=== PATIENT | male | born 1970 | race African-American/Black ===

== ENCOUNTER 2016-11-20 18:59 | Emergency (ER) | payer OTHER, BC ==
[2016-11-20 19:07] VITALS: BP 113/65
--- NOTE | 2016-11-20 19:54 | ER Document Report ---
ED Medical Screen (RME) - General Chief Complaint: Groin Pain Stated Complaint: ABDOMINAL PAIN Time Seen by Provider: 11/20/16 19:43 Mode of Arrival: Ambulatory Information source: Patient Notes: The 46-year-old man with a history of BPH who presents to the emergency room with right groin pain and blood in the urine. Patient states that he had 3 days of chills and "feeling sick". He states that he was seen in the urgent care and diagnosed with a UTI and started on an antibiotic yesterday. He states today he started to have a right pain and then right groin pain and had gross hematuria. TRAVEL OUTSIDE OF THE [place] IN LAST 30 DAYS: No - Related Data Allergies/Adverse Reactions: aspirin [Aspirin] Allergy (Verified 11/20/16 19:07) swelling Past Medical History Renal/ Medical History: Denies: Hx Peritoneal Dialysis - Immunizations Immunizations up to date: Yes Hx Diphtheria, Pertussis, Tetanus Vaccination: Yes Physical Exam - Vital signs Vitals: Temp Pulse Resp BP Pulse Ox 99.5 F 87 16 113/65 97 11/20/16 19:07 11/20/16 19:07 11/20/16 19:07 11/20/16 19:07 11/20/16 19:07 Course - Vital Signs Vital signs: Temp Pulse Resp BP Pulse Ox 99.5 F 87 16 113/65 97 11/20/16 19:07 11/20/16 19:07 11/20/16 19:07 11/20/16 19:07 11/20/16 19:07
[2016-11-20 20:08] LABS: ABSOLUTE EOSINOPHILS # (AUTO) 0.1 10^3/uL (0.0-0.6); ABSOLUTE MONOCYTES (AUTO) 0.9 10^3/uL (0.1-1.4); ABSOLUTE NEUT (AUTO) 5.6 10^3/uL (1.7-8.2); BASOPHILS % (AUTO) 0.3 % (0-2); EOSINOPHILS % (AUTO) 1.2 % (0-6); HEMATOCRIT 42.5 % (37.9-51.0); HGB HCT DIFFERENCE -0.5; LYMPHOCYTES % (AUTO) 12.9 % (13-45); MEAN CORPUSCULAR HEMOGLOBIN 29.3 pg (27.0-33.4); MEAN CORPUSCULAR VOLUME 89 fl (80-97); MONOCYTES % (AUTO) 12.3 % (3-13); RED BLOOD COUNT 4.79 10^6/uL (4.35-5.55); RED CELL DISTRIBUTION WIDTH 12.6 % (11.5-14.0); SEGMENTED NEUTROPHILS % (AUTO) 73.3 % (42-78); WHITE BLOOD COUNT 7.6 10^3/uL (4.0-10.5)
--- NOTE | 2016-11-20 20:21 | RADIOLOGY REPORT (SQ) ---
EXAM DESCRIPTION: CT LTD RENAL STONE PROTOCOL ON COMPLETED DATE/TIME: 11/20/2016 8:07 pm REASON FOR STUDY: right flank pain COMPARISON: None. TECHNIQUE: CT scan of the abdomen and pelvis performed without intravenous or oral contrast. Images reviewed with lung, soft tissue, and bone windows. Reconstructed coronal and sagittal MPR images revi ewed. All images stored on PACS. All CT scanners at this facility use dose modulation, iterative reconstruction, and/or weight based d osing when appropriate to reduce radiation dose to as low as reasonably achievable (ALARA). [facility]: Dose Right [facility]: CareDose [facility]: Dose Right [facility]: Teradose 4D [facility]: Smart Baoku RADIATION DOSE: Up-to-date CT equipment and radiation dose reduction techniques were employed. CTDIv ol: 5.3 mGy. DLP: 279 mGy-cm.mGy. LIMITATIONS: None. FINDINGS: LOWER CHEST: No significant findings. No nodules or infiltrates. NON-CONTRASTED LIVER, SPLEEN, ADRENALS: Evaluation limited by lack of IV contrast. No identified sign ificant masses. PANCREAS: No masses. No peripancreatic inflammatory changes. GALLBLADDER: No identified stones by CT criteria. No inflammatory changes to suggest cholecystitis. RIGHT KIDNEY AND URETER: No suspicious masses. Assessment limited by lack of IV contrast. No signif icant calcifications. No hydronephrosis or hydroureter. LEFT KIDNEY AND URETER: No suspicious masses. Assessment limited by lack of IV contrast. No signifi cant calcifications. No hydronephrosis or hydroureter. AORTA AND RETROPERITONEUM: No aneurysm. No retroperitoneal masses or adenopathy. BOWEL AND PERITONEAL CAVITY: No obvious masses or inflammatory changes. No free fluid. APPENDIX: Normal. PELVIS, BLADDER, AND ABDOMINAL WALL:No abnormal masses. No free fluid. Bladder partially decompressed . BONES: No significant findings. OTHER: No other significant finding. IMPRESSION: NO ACUTE PROCESS IN THE ABDOMEN OR PELVIS. TECHNICAL DOCUMENTATION: JOB ID: [id number] Quality ID # [id number]: Final reports with documentation of one or more dose reduction techniques (e.g., Au tomated exposure control, adjustment of the mA and/or kV according to patient size, use of iterative reconstruction technique) 2010 [employer] All Rights Reserved
[2016-11-20 20:27] LABS: ALANINE AMINOTRANSFERASE 42 U/L (21-72); ALBUMIN 3.8 g/dL (3.5-5.0); ALKALINE PHOSPHATASE 55 U/L (38-126); ANION GAP 8 (5-19); ASPARTATE AMINO TRANSFERASE 25 U/L (17-59); BILIRUBIN,DIRECT 0.3 mg/dL (0.0-0.4); BILIRUBIN,TOTAL 0.4 mg/dL (0.2-1.3); BLOOD UREA NITROGEN 13 mg/dL (7-20); CALCIUM 9.3 mg/dL (8.4-10.2); CARBON DIOXIDE 29 mmol/L (22-30); CHLORIDE 102 mmol/L (98-107); CREATININE RESULT 1.11 mg/dL (0.52-1.25); GLUCOSE 100 mg/dL (75-110); POTASSIUM 4.2 mmol/L (3.6-5.0); SODIUM 138.5 mmol/L (137-145); TOTAL PROTEIN 7.1 g/dL (6.3-8.2)
[2016-11-20 20:39] LABS: APPEARANCE,URINE CLOUDY; BILIRUBIN,URINE NEGATIVE (NEGATIVE); GLUCOSE, URINE NEGATIVE (NEGATIVE); KETONES,URINE NEGATIVE (NEGATIVE); LEUKOCYTE ESTERASE,URINE LARGE (NEGATIVE); NITRITE,URINE NEGATIVE (NEGATIVE); PROTEIN,URINE 100 mg/dL (NEGATIVE); URINE SPECIFIC GRAVITY 1.013; UROBILINOGEN,URINE NEGATIVE mg/dL (<2.0)
[2016-11-20] MEDS ORDERED: CEFTRIAXONE INJ 1000 MG VIAL IM ONE (20:58)
[2016-11-20] MEDS ORDERED: LIDOCAINE 1% INJ-PF (10 MG/ML) 30 ML SDV INFIL ONE (20:58)
[2016-11-20] MEDS ORDERED: LEVOFLOXACIN 500 MG TABLET PO ONE (21:00)
--- NOTE | 2016-11-20 21:10 | ER Document Report ---
ED General - General Chief Complaint: Groin Pain Stated Complaint: ABDOMINAL PAIN Time Seen by Provider: 11/20/16 19:43 Mode of Arrival: Ambulatory Notes: Patient is a 46-year-old male with past medical history of prostatic hypertrophy who presents with 3 days of dysuria, suprapubic abdominal pain and right testicular pain. States he was seen in urgent care 1 day ago and started on cephalexin for a presumptive urinary tract infection. Patient denies any risk factors for male urinary tract infections. He states that the antibiotics have not improved his symptoms. Nothing worsens the symptoms. Does describe the pain as a dull, burning pain that is often severe to the suprapubic region as well as the right testicle. He denies any history of similar symptoms in the past. Denies any fever or constitutional symptoms. TRAVEL OUTSIDE OF THE [place] IN LAST 30 DAYS: No - Related Data Allergies/Adverse Reactions: aspirin [Aspirin] Allergy (Verified 11/20/16 19:07) swelling Past Medical History - General Information source: Patient - Social History Smoking Status: Never Smoker Frequency of alcohol use: None Drug Abuse: None Lives with: Spouse/Significant other Family History: Reviewed & Not Pertinent Patient has suicidal ideation: No Patient has homicidal ideation: No Renal/ Medical History: Denies: Hx Peritoneal Dialysis - Immunizations Immunizations up to date: Yes Hx Diphtheria, Pertussis, Tetanus Vaccination: Yes Review of Systems - Review of Systems Notes: Constitutional: Negative for fever. HENT: Negative for sore throat. Eyes: Negative for visual changes. Cardiovascular: Negative for chest pain. Respiratory: Negative for shortness of breath. Gastrointestinal: Negative for abdominal pain, vomiting or diarrhea. Genitourinary: Positive for dysuria, hematuria, right testicular pain Musculoskeletal: Negative for back pain. Skin: Negative for rash. Neurological: Negative for headaches, weakness or numbness. 10 point ROS negative except as marked above and in HPI. Physical Exam - Vital signs Vitals: Temp Pulse Resp BP Pulse Ox 99.5 F 87 16 113/65 97 11/20/16 19:07 11/20/16 19:07 11/20/16 19:07 11/20/16 19:07 11/20/16 19:07 Interpretation: Normal Notes: PHYSICAL EXAMINATION: GENERAL: Well-appearing, well-nourished and in no acute distress. HEAD: Atraumatic, normocephalic. EYES: Pupils equal round and reactive to light, extraocular movements intact, sclera anicteric, conjunctiva are normal. ENT: nares patent, oropharynx clear without exudates. Moist mucous membranes. NECK: Normal range of motion, supple without lymphadenopathy LUNGS: Breath sounds clear to auscultation bilaterally and equal. No wheezes rales or rhonchi. HEART: Regular rate and rhythm without murmurs ABDOMEN: Soft, nontender, normoactive bowel sounds. No guarding, no rebound. No masses appreciated. : Exquisite right epididymal tenderness to palpation. Positive cremasteric reflex bilaterally. No penile scrotal lesions rectal exam without any tenderness on palpation of the prostate. EXTREMITIES: Normal range of motion, no pitting or edema. No cyanosis. NEUROLOGICAL: No focal neurological deficits. Moves all extremities spontaneously and on command. PSYCH: Normal mood, normal affect. SKIN: Warm, Dry, normal turgor, no rashes or lesions noted. Course - Re-evaluation Re-evalutation: 11/20/16 21:01 Patient presents with dysuria, polyuria hematuria, and exquisite pain to the right epididymis and mild pain to the testicle. Rectal exam does not show any focal prostate tenderness. For unclear reasons in triage CT of the abdomen pelvis without contrast is obtained although patient clinical history is not all consistent with nephrolithiasis. This is noted to be normal. Likewise, the remainder patient's laboratories are unremarkable with exception of his urinalysis which shows findings consistent with a urinary tract infection or epididymitis. However, patient has no flank tenderness whatsoever and I do not suspect an acute pyelonephritis. I believe things his exam and history much more consistent with an epididymitis with associated orchitis versus a possible hemorrhagic cystitis. Patient is already on cephalexin but has not had any improvement of symptoms. He will be given a dose of ceftriaxone IM here in the emergency department and will be started on levofloxacin for the next 10 days. At this time will discharge with return precautions and follow-up recommendations. Verbal discharge instructions given a the bedside and opportunity for questions given. Medication warnings reviewed. Patient is in agreement with this plan and has verbalized understanding of return precautions and the need for primary care follow-up in the next 24-72 hours. - Vital Signs Vital signs: Temp Pulse Resp BP Pulse Ox 99.5 F 87 16 113/65 97 07/07/17 19:07 11/20/16 19:07 11/20/16 19:07 11/20/16 19:07 11/20/16 19:07 - Laboratory Result Diagrams: 11/20/16 19:55 11/20/16 19:55 Laboratory results interpreted by me: 11/20/16 11/20/16 19:55 20:20 Lymphocytes % 12.9 L Urine Protein 100 H Urine Blood LARGE H Ur Leukocyte Esterase LARGE H - Diagnostic Test Radiology reviewed: Reports reviewed Discharge - Discharge Clinical Impression: Epididymitis, right Hematuria Qualifiers: Hematuria type: gross Qualified Code(s): R31.0 - Gross hematuria Condition: Good Disposition: HOME, SELF-CARE Instructions: Epididymitis ([facility]), Anti-Inflammatory Medication ([facility]) Additional Instructions: Your symptoms are likely due to an infection of your epididymis and testicle on the right side. Please take all antibiotics exactly as directed. You may discontinue the cephalexin that you are taking. For your pain: Take ibuprofen 600 mg and acetaminophen 1000 mg every 6 hours together as needed for pain. Please return if you develop a fever of greater than 101F, persistent vomiting , worsening of your pain, or any other symptoms that are worrisome to you. Prescriptions: Levofloxacin [Levaquin 500 mg Tablet] 500 mg PO DAILY #10 tablet
[2016-11-20] MEDS ORDERED: IBUPROFEN 600 MG TABLET PO ONE (21:12)
== END 2016-11-20 21:42 | disposition home or self-care (01) ==
LOC: ER 18:59
DX: N45.1 Epididymitis (principal); R31.0 Gross hematuria; N50.811 Right testicular pain; Z88.6 Allergy status to analgesic agent
CPT/HCPCS: 99284; 96372; 36415; 87086; 85025; 87088; 80053; 81001; 87186; 76380; J0696